=== PATIENT | male | born 1945 | race Native Hawaiian/Other Pacific Islander ===

== ENCOUNTER 2016-09-19 09:14 | Outpatient (CLI) | payer OTHER | END 2016-09-19 19:11 | disposition home or self-care (01) | LOC: US 09:14 | DX: R10.9 Unspecified abdominal pain (principal) ==

== ENCOUNTER 2016-10-19 09:27 | Outpatient (CLI) | payer OTHER | END 2016-10-19 19:01 | disposition home or self-care (01) | LOC: CT 09:27 | DX: R10.31 Right lower quadrant pain (principal) | CPT/HCPCS: Q9963 ==

== ENCOUNTER 2016-10-24 14:23 | Outpatient (CLI) | payer OTHER | END 2016-10-24 16:23 | disposition home or self-care (01) | LOC: LABW 14:23 | DX: C26.0 Malignant neoplasm of intestinal tract, part unspecified (principal) | CPT/HCPCS: 36415; 82378 ==

== ENCOUNTER 2016-11-08 08:30 | Day surgery (SDC) | payer OTHER ==
[~2016-11-08] VITALS: Ht 175.3 cm; Wt 86.2 kg
[2016-11-08 09:34] LABS: PLATELET COUNT 505 K/uL (142-355)
[2016-11-08 09:42] LABS: POTASSIUM 3.9 mmol/L (3.6-5.2); SODIUM 140 mmol/L (136-145)
[2016-11-08 10:56] LABS: PARTIAL THROMBOPLASTIN TIME 25.1 SECONDS (24.5-33.6)
== END 2016-11-08 10:45 | disposition home or self-care (01) ==
LOC: OR 08:30
PROVIDERS: Student in an Organized Health Care Education/Training Program
PROC: 0DB68ZZ Excision of Stomach, Via Natural or Artificial Opening Endoscopic (ICD-10-PCS; principal; 2016-11-08)
PROC: 0DBK8ZZ Excision of Ascending Colon, Via Natural or Artificial Opening Endoscopic (ICD-10-PCS; 2016-11-08)
PROC: 0DBL8ZZ Excision of Transverse Colon, Via Natural or Artificial Opening Endoscopic (ICD-10-PCS; 2016-11-08)
DX: K29.50 Unspecified chronic gastritis without bleeding (principal); K44.9 Diaphragmatic hernia without obstruction or gangrene; D12.3 Benign neoplasm of transverse colon; D12.2 Benign neoplasm of ascending colon; R10.84 Generalized abdominal pain; R93.8 Abnormal findings on diagnostic imaging of other specified body structures; Z12.11 Encounter for screening for malignant neoplasm of colon
CPT/HCPCS: 80048; 85027; 85610; 85730; J2001; J2704